=== PATIENT | female | born 1985 | race Caucasian/White ===

== ENCOUNTER 2019-11-25 23:35 | Inpatient (IN) | payer OTHER ==
[2019-11-26] MEDS ORDERED: CITRIC ACID/SODIUM CITRATE 30 ML UNIT-DOSE CUP PO ONE (00:49)
--- NOTE | 2019-11-26 01:07 | HP ---
Past Medical History - Primary Care Physician PCP:: Juanis Ortiz - Admission History Source: Patient Limitations to Obtaining History: No Limitations - Past Medical History ...: 3 ...Para: 2 ...EDC by Dates: 12/06/19 - Past Surgical History Past Surgical History: Yes: Hx Myomectomy: No Hx Transabdominal Cerclage: No - Smoking History Have you smoked in the past 12 months: No - Alcohol/Substance Use Hx Alcohol Use: No Home Medications - Allergies Allergies/Adverse Reactions: Allergies Allergy/AdvReac Type Severity Reaction Status Date / Time No Known Allergies Allergy Verified 11/26/19 00:48 - Home Medications Home Medications: Ambulatory Orders Vitamins (Sjr) - 1 tab PO DAILY 11/26/19 Review of Systems - Review of Systems Constitutional: reports: No Symptoms Cardiovascular: reports: No Symptoms Respiratory: reports: No Symptoms Gastrointestinal: reports: No Symptoms Genitourinary: reports: No Symptoms Physical Exam - Maternity Constitutional: Yes: Well Nourished Cardiovascular: Yes: WNL - Abdominal Exam/OB Fundal Height: 39 Number of Fetuses: Single Presentation: Vertex Contractions: Yes Regularity: Irregular Intensity: Mild/Mod Monitor Mode: External Heart Rate (range): 150 Accelerations: Uniform Decelerations: None - Vaginal Exam/OB Vaginal Bleeding: No Dilatation (cm): ft Effacement (%): 0 Amniotic Membrane Status: Ruptured Amniotic Fluid: Yes: Clear Presentation: Vertex/Position Station: -3 Hemorrhage Risk Assessment - Risk Factors Medium Risk Factors: Yes: Prior , uterine surgery,or multiple laparotomies High Risk Factors: Yes: None Risk Score: 1 Risk Level: Medium Risk Problem List - Problems (1) Previous delivery affecting Code(s): O34.219 - MATERNAL CARE FOR UNSP TYPE SCAR FROM PREVIOUS DEL Assessment/Plan 34yo @38w3d transferred from [facility] ER for contractions and leakage of fluid,obesity, GDMA1,GBS -neg 2 previous csection,SROM, Desires BTL Risks benefits alternatives of BTL discussed, risks of repeat including possibility of blood transfusion, bladder bowel surgery,possibility of hysterectomy discussed, patient understands and agrees Cloth Washer Back Tender used Admit to labor and delivery labs IV Informed consent Prepare for surgery
[2019-11-26 01:17] LABS: BASO % 0.2 % (0-2.0); EOS % 1.3 % (0-4.5); HEMATOCRIT 29.3 % (32.4-45.2); HEMOGLOBIN 9.5 GM/dL (10.7-15.3); MCH 25.9 pg (25.7-33.7); MCHC 32.4 g/dl (32.0-36.0); MEAN PLT VOLUME 8.3 fl (7.5-11.1); MONO % 5.9 % (3.8-10.2); NEUT % 76.6 % (42.8-82.8); PLATELET COUNT 246 K/MM3 (134-434); RBC 3.66 M/mm3 (3.60-5.2); RDW 15.1 % (11.6-15.6); WHITE BLOOD COUNT 9.6 K/mm3 (4.0-10.0)
[2019-11-26 01:25] LABS: INR 0.96 (0.83-1.09); PROTHROMBIN TIME (PATIENT) 11.3 SEC (9.7-13.0)
[2019-11-26] MEDS ORDERED: ceFAZolin 2 GRAM PREMIX BAG IVPB ONE (01:30)
[2019-11-26] MEDS ORDERED: OXYTOCIN 20 UNITS in 0.9% NS 40 UNIT/2,000 ML INFUS.BAG IV ONE (01:34)
[2019-11-26 01:49] VITALS: BMI 37.8
[2019-11-26 01:52] LABS: CALCIUM 7.6 mg/dL (8.5-10.1); CREATININE 0.5 mg/dL (0.55-1.3); POTASSIUM 3.7 mmol/L (3.5-5.1)
[2019-11-26] MEDS ORDERED: morphine SULFATE/PF 0.5 MG/ML (2cc Syringe - QUVA) ONE (01:56)
[2019-11-26 02:18] LABS: ACTIVATED PTT 25.9 SECONDS (25.2-36.5)
--- NOTE | 2019-11-26 03:56 | OP ---
Operative Note - Note: Operative Date: 11/26/19 Pre-Operative Diagnosis: IUP@ 38w3d,SROM,GROSS POOLING,LABOR,2 PREVIOUS CSECTIONS,DESIRES STERLISATION Operation: Repeat csection,BTL. Findings: BABY BOY IN CEPHALIC PRESENTATION, THICK PANNUS, ADHESIONS DURING ENTRY INTO ABDOMEN Post-Operative Diagnosis: Same as Pre-op Surgeon: Jesse Gunn Pearl Diver: Favian Cifuentes Anesthesia: Spinal Estimated Blood Loss (mls): 700 Operative Report Dictated: Yes
[2019-11-26] MEDS: OXYTOCIN 20 UNITS in 0.9% NS 20 UNIT/1,000 ML INFUS.BAG IV SCH ×2 (04:00→09:58)
[2019-11-26] MEDS ORDERED: oxyCODONE HCL 5 MG TABLET PO PRN (04:08)
[2019-11-26] MEDS ORDERED: METHYLERGONOVINE MALEATE 0.2 MG/1 ML AMP IM PRN (04:08)
[2019-11-26 05:26] LABS: CORD BASE EXCESS -6.2 mmol/L (0-2); CORD HCO3 22.5 mmHg (20-29); CORD PCO2 56.7 mmHg (30-78); CORD pH 7.216 (7.14-7.44)
[2019-11-26 05:29] LABS: CORD PCO2 72.3 mmHg (30-78); CORD pH 7.156 (7.14-7.44)
--- NOTE | 2019-11-26 08:29 | OP ---
DATE OF OPERATION: DATE OF DICTATION: 11/26/2019 PREOPERATIVE DIAGNOSES: 1. Intrauterine at 38 weeks and 3 days. 2. Previous 2 sections. 3. In labor. 4. Desires sterilization. POSTOPERATIVE DIAGNOSES: 1. Intrauterine at 38 weeks and 3 days. 2. Previous 2 sections. 3. In labor. 4. Desires sterilization. PROCEDURE: 1. Repeat low transverse section via Pfannenstiel skin incision. 2. Bilateral tubal sterilization. SURGEON: Jesse Hankins MD COUNTY SHERIFF: KIRSTIN Lepe COMPLICATIONS: None. ESTIMATED BLOOD LOSS: 700 mL INDICATION: A 34-year-old 3, para 2 presented to labor and delivery, transferred from [facility] for contractions and spontaneous rupture of membranes. Patient was evaluated on labor and delivery at [facility] and found to have gross pooling and also was having contractions. At this point was discussed with the patient and informed decision made. Patient was fingertip dilated. FINDINGS: Baby boy in cephalic presentation. Normal uterus, tubes and ovaries. There were filmy adhesions on the anterior surface of the uterus, thick scar tissue and pannus during entry into the abdomen. PROCEDURE: After informed consent, patient was taken to the OR. She was prepped and draped in a normal sterile fashion in the dorsal supine position with a leftward tilt. A Pfannenstiel skin incision was made with the scalpel and carried through the underlying layers of thick pannus and thick scar tissue to the fascia. Fascia was incised in the midline and extended laterally with careful visualization of the underlying tissue. Rectus muscle was then in the midline, peritoneum identified and incision made in the peritoneum with careful visualization of the bladder and bowel. Thick fatty tissue was present secondary to obesity all throughout the entry into the abdomen. The rectus was then in the midline, peritoneum entered. Bladder blade was placed in the lower uterine segment and incision made in the lower uterine segment. The membranes were ruptured and clear fluid. Baby was in cephalic presentation and delivered atraumatically. Nose and mouth were suctioned. Cord was clamped and cut. Cord gases were sent and cord blood was sent. Baby was handed over to waiting cager operator. Placenta was then removed completely and manually. Uterus exteriorized and cleared of all clots and debris. Uterine incision was then repaired with 0 Vicryl in a running locked fashion. Excellent hemostasis was confirmed. At this point we proceeded towards doing bilateral tubal sterilization via modified Nicki technique. The tubes were identified, tied and cut. Both segments of the fallopian tubes were sent to Pathology. After confirming hemostasis, uterus was then returned back into the abdomen. The gutters were cleared of all clots and debris. Uterine incision and the tubes were inspected for excellent hemostasis. At this point we proceeded towards closing the abdomen. Fascia was then reapproximated in a running fashion with 1 Vicryl. Excellent hemostasis was confirmed. Subcutaneous tissue was irrigated and closed and skin was then closed with liane. Two g Ancef were given prior to surgery. Patient tolerated the procedure well. Sponge, lap and needle count was correct x2 and patient was transferred to recovery room in stable condition. JESSE HANKINS MD FT/[id number]
[2019-11-26 08:55] LABS: POC NITRAZINE NEG
[2019-11-26] MEDS ORDERED: IBUPROFEN 800 MG/8 ML IJ IVPB ONE (09:54)
[2019-11-26] MEDS: CEFAZOLIN 1 GM/D5W 1 GM/50 ML BAG IVPB SCH ×2 (09:57→17:44)
[2019-11-27] MEDS: CEFAZOLIN 1 GM/D5W 1 GM/50 ML BAG IVPB SCH (01:51)
[2019-11-27] MEDS: IBUPROFEN 600 MG TABLET (FP) PO PRN (01:55)
[2019-11-27] MEDS: SIMETHICONE 80 MG TAB.CHEW (FP) PO PRN ×2 (01:56→21:35)
[2019-11-27] MEDS ORDERED: BISACODYL 10 MG SUPP.RECT RC PRN (04:08)
[2019-11-27 07:43] LABS: BASO % 0.3 % (0-2.0); EOS % 0.4 % (0-4.5); HEMATOCRIT 27.4 % (32.4-45.2); LYMPH % 14.6 % (8-40); MCH 26.6 pg (25.7-33.7); MCHC 32.9 g/dl (32.0-36.0); MEAN CELL VOLUME 80.7 fl (80-96); MEAN PLT VOLUME 8.5 fl (7.5-11.1); MONO % 7.1 % (3.8-10.2); NEUT % 77.6 % (42.8-82.8); PLATELET COUNT 235 K/MM3 (134-434); RBC 3.39 M/mm3 (3.60-5.2); RDW 15.2 % (11.6-15.6); WHITE BLOOD COUNT 12.2 K/mm3 (4.0-10.0)
--- NOTE | 2019-11-27 11:28 | PN ---
Progress Note (short form) - Note Progress Note: S/P section has no complaints wound clear abdomen soft + BS fundus firm mod lochia no calf tenderness plan f/u tomorrow circumcision
[2019-11-27] MEDS ORDERED: FLU VACCINE (FLULAVAL) PF 60 MCG/0.5 ML SYRINGE 2020-2021 IM ONE (12:00)
[2019-11-27] MEDS ORDERED: DIPHTH,PERTUSS(ACELL),TET 0.5 ML DISP.SYRIN IM ONE (12:00)
--- NOTE | 2019-11-27 12:02 | PN ---
Progress Note (short form) - Note Progress Note: Anesthesia Post Op Note Pt s/p spinal for c/s Pt awake alert denies h/a, n/v Mild puritis, good pain control Ambul well No urinary retention VSS no apparent anesthesia complications Atul Joyner.
[2019-11-27] MEDS ORDERED: oxyCODONE HCL 5 MG TABLET PO PRN (21:30)
[2019-11-27] MEDS: ACETAMINOPHEN 325 MG TABLET (FP) PO PRN (21:35)
[2019-11-28] MEDS: IBUPROFEN 600 MG TABLET (FP) PO PRN ×2 (00:40→05:45)
[2019-11-28] MEDS: ACETAMINOPHEN 325 MG TABLET (FP) PO PRN ×2 (00:40→05:46)
[2019-11-28] MEDS: SIMETHICONE 80 MG TAB.CHEW (FP) PO PRN ×2 (00:41→05:45)
--- NOTE | 2019-11-28 10:25 | DS ---
Physical Exam-ROTOR WINDER Vital Signs: Vital Signs Temperature 98.6 F 11/27/19 22:00 Pulse Rate 76 11/27/19 22:00 Respiratory Rate 18 11/27/19 22:00 Blood Pressure 101/57 L 11/27/19 22:00 O2 Sat by Pulse Oximetry (%) 98 11/27/19 22:00 Constitutional: Yes: Well Nourished Eyes: Yes: WNL HENT: Yes: WNL Neck: Yes: WNL Cardiovascular: Yes: WNL Respiratory: Yes: WNL (requesting discharge today) Internal Exam Deferred: Yes Uterus: Yes: Firm ....Post : Yes: Slight lochia rubra Edema: Yes Labs: CBC, BMP 11/27/19 06:55 11/26/19 01:00 Delivery - Delivery Type of Anesthesia: Spinal Episiotomy/Laceration: None EBL (cc): 700 Delivery, Single - Stages of Labor Date 1st Stage Initiatied: 11/25/19 Time 1st Stage Initiated: 20:00 Date of Delivery: 11/26/19 Time of Delivery: 02:44 Time Placenta Delivered: 02:45 - Condition of Infant Hair Boiler Operator/End Stapler Present: Yes Name: Kailee Crawford Gender: Male Weight: 3.572 kg Position: Left, OA Total Hours ROM (Hrs/Mins): 6hrs 45min - 1 Minute Total Score: 9 5 Minutes Total Score: 9 - Feeding Plan Initial Plan: Elected not to breastfeed exclusively throughout hospitalization Remarks - Remarks Remarks: s/p repeat c section x 3 requesting discharge; patient stable Discharge Summary Problems reviewed: Yes Reason For Visit: REPEAT Current Active Problems Previous delivery affecting (Acute) Procedures: Principal: repeat c section Hospital Course: benign Plan of Treatment: home Condition: Good - Instructions Diet, Activity, Other Instructions: regular diet Disposition: HOME - Home Medications Comprehensive Discharge Medication List: Ambulatory Orders Vitamins (Sjr) - 1 tab PO DAILY 11/26/19 Prescription Drug Monitoring Program (I-STOP) results: I-STOP reviewed and no issues identified (RTO in 5 days for removal of liane)
[2019-11-28 12:10] VITALS: BP 88/55; PULSE 84; TEMP 98.2
--- NOTE | 2019-12-01 18:35 | PATH ---
Surgical Pathology Report Patient Name: CHELSEY JUAREZ [facility]. Rec. #: [id number] /Age/Gender: 1985 (Age: 34) / F Account: [id number] Location: [facility] OBS/CERAMICS MACHINE OPERATOR Taken: 11/26/2019 Received: 11/26/2019 Reported: 12/01/2019 Physicians: Jesse Gunn M.D. Specimen(s) Received A: PLACENTA B: PORTION OF RIGHT FALLOPIAN TUBE C: PORTION OF LEFT FALLOPIAN TUBE Clinical History , 38.4 weeks gestation, previous x2 with SROM Final Diagnosis A. PLACENTA, SECTION: 461 G THIRD TRIMESTER PLACENTA WITH TRIVASCULAR UMBILICAL CORD AND UNREMARKABLE PLACENTAL MEMBRANES. B. PORTION OF FALLOPIAN TUBE, RIGHT, PARTIAL EXCISION: FULL LUMINAL PORTION OF UNREMARKABLE FALLOPIAN TUBE. C. PORTION OF FALLOPIAN TUBE, LEFT, PARTIAL EXCISION: FULL LUMINAL PORTION OF UNREMARKABLE FALLOPIAN TUBE. Electronically Signed Florecita Pritchett M.D. Gross Description A. The specimen is received fresh labeled placenta and is a 461 gram, 18.0 x 16.0 x 2.7 cm. placenta with attached membranes and umbilical cord. The attached membranes are contreras, translucent with focal opacities and insert marginally. The umbilical cord measures 18 cm. in length and averages 1 cm. in diameter. The cord inserts eccentrically, 2.5 cm. to the nearest margin. No true knots or strictures are identified. Cut surface of the umbilical cord reveals 3 vessels. The surface is lindquist-blue with minimal fibrin deposition and appropriate caliber vessels. The maternal surface is red-brown with focal defects. Sectioning reveals red-brown, spongy parenchyma. No lesions are identified. Fire Management Specialist sections are submitted in three cassettes as follows: 1- membrane rolls and umbilical cord; 2-3- full thickness sections of placenta. B. Received in formalin labeled "portion of right fallopian tube," is a 1.5 cm in length portion of fallopian tube. No fimbria are present. The outer surface is contreras lindquist and smooth. Sectioning reveals an unremarkable lumen. Fire Management Specialist sections are submitted in one cassette. C. Received in formalin labeled "portion of fallopian tube left," is a 1.3 cm in length portion of fallopian tube. No fimbria are present. The outer surface is contreras lindquist and smooth. Sectioning reveals an unremarkable lumen. Fire Management Specialist sections are submitted in one cassette. 11/28/2019 [facility]11/28/2019
== END 2019-11-28 17:30 | disposition home or self-care (01) | DRG 540 ==
LOC: JDEL 23:35 → JLDR 11-26 00:20 → J3W 11-26 06:00
PROVIDERS: ADMIT Obstetrics & Gynecology; ATTEND Obstetrics & Gynecology
PROC: 10D00Z1 Extraction of Products of Conception, Low, Open Approach (ICD-10-PCS; principal; 2019-11-26)
PROC: 0UL70ZZ Occlusion of Bilateral Fallopian Tubes, Open Approach (ICD-10-PCS; 2019-11-26)
DX: O82 Encounter for cesarean delivery without indication (principal); O24.420 Gestational diabetes mellitus in childbirth, diet controlled; O34.219 Maternal care for unspecified type scar from previous cesarean delivery; O99.214 Obesity complicating childbirth; E66.9 Obesity, unspecified; O99.892 Other specified diseases and conditions complicating childbirth; N73.6 Female pelvic peritoneal adhesions (postinfective); Z3A.38 38 weeks gestation of pregnancy; Z37.0 Single live birth; Z30.2 Encounter for sterilization
CPT/HCPCS: 36415; 36600; 80048; 82803; 83986-QW; 85025; 85610; 85730; 86780; 86850; 86900; 86901; 88302-TC; 88307-TC; 90715; G0008; Q2036; U0003